=== PATIENT | male | born 1960 | race Hispanic/Latino ===

== ENCOUNTER 2018-06-04 15:57 | Inpatient (IN) | payer SELFPAY ==
--- NOTE | 2018-06-04 16:31 | Emergency Department Report ---
HPI - General Chief Complaint: Extremity Injury, Lower Time Seen by Provider: 06/04/18 16:23 - HPI HPI: 57-year-old male presents to the emergency department via EMS with complaint of left hip and groin pain has been going on since he had a fall on Monday. The patient does admit that he was intoxicated at that time and does not remember the event. He says that he has been laying in bed since that time. He was given 30 mg of Toradol by EMS without much relief. He says he is unable to ambulate or bear weight secondary to his hip/leg pain. He has a past medical history of coronary artery disease with a triple bypass. He denies hitting his head, any neck or back pain, headache, vision change or any other neurological deficits. ED Past Medical Hx - Past Medical History Hx Heart Attack/AMI: Yes Hx Congestive Heart Failure: No Hx Diabetes: No Hx Asthma: No Hx COPD: No - Social History Smoking Status: Current Every Day Smoker Substance Use Type: Alcohol - Medications Home Medications: Home Medications Medication Instructions Recorded Confirmed Last Taken Type Acetaminophen [Tylenol] 1,000 mg PO Q6HR 06/10/15 06/10/15 06/10/15 10:00 History ED Review of Systems ROS: Stated complaint: HIP PAIN Other details as noted in HPI Comment: All other systems reviewed and negative Constitutional: denies: chills, fever Eyes: denies: eye pain, vision change ENT: denies: ear pain, throat pain Respiratory: denies: cough, shortness of breath Cardiovascular: denies: chest pain, palpitations Gastrointestinal: denies: abdominal pain, vomiting Genitourinary: denies: dysuria, frequency Musculoskeletal: arthralgia. denies: back pain Skin: denies: rash, lesions Neurological: denies: headache, weakness Physical Exam - Physical Exam Vital Signs: Vital Signs 06/04/18 16:07 Temperature 98.1 F Pulse Rate 121 H Respiratory 18 Rate Blood Pressure 184/103 O2 Sat by Pulse 97 Oximetry Physical Exam: GENERAL: The patient is well-developed well-nourished. HEENT: Normocephalic. Atraumatic. Patient has moist mucous membranes. EYES: Extraocular motions are intact. NECK: Supple. Trachea is midline. CHEST/LUNGS: Clear to auscultation. There is no respiratory distress noted. HEART/CARDIOVASCULAR: Regular. There is mild to moderate tachycardia. There is no obvious murmur. ABDOMEN: There is no abdominal distention. SKIN: Skin is warm and dry. NEURO: The patient is awake, alert, and oriented. The patient is cooperative. The patient has no focal neurologic deficits. The patient has normal speech. MUSCULOSKELETAL: Tenderness to palpation to the left hip. Decreased range of motion of the left lower extremity secondary to pain. The left leg is slightly shortened and internally rotated.. ED Course Vital Signs 06/04/18 16:07 Temperature 98.1 F Pulse Rate 121 H Respiratory 18 Rate Blood Pressure 184/103 O2 Sat by Pulse 97 Oximetry - Consultations Consultation #1: 06/04/18 19:11 I spoke with the orthopedist on-call, Dr. Armijo, who is aware of the patient's femoral neck fracture and will see the patient has a consult. ED Medical Decision Making - Lab Data Result diagrams: 06/04/18 17:25 06/04/18 17:25 - Radiology Data Radiology results: image reviewed interpreted by me: X-ray of the left hip shows an impacted femoral neck fracture. - Medical Decision Making Patient had a fall 2 days ago when he was intoxicated and has been having hip pain and trouble bearing weight since that time. X-ray shows an impacted femoral neck fracture. He is neurovascularly intact. The orthopedist has been notified and consult. The patient has been accepted for admission by the hospitalist, Dr. Pina. - Differential Diagnosis blood pressure, contusion, sprain, strain Critical Care Time: No Critical care attestation.: If time is entered above; I have spent that time in minutes in the direct care of this critically ill patient, excluding procedure time. ED Disposition Clinical Impression: Fracture of femoral neck, left Qualifiers: Encounter type: initial encounter Fracture type: closed Qualified Code(s): S72.002A - Fracture of unspecified part of neck of left femur, initial encounter for closed fracture Hypertension Qualifiers: Hypertension type: essential hypertension Qualified Code(s): I10 - Essential (primary) hypertension Disposition: OP ADMIT IP TO THIS HOSP Is pt being admited?: Yes Condition: Fair Instructions: Hypertension (ED) Referrals: DAVID CHA MD [Primary Care Provider] - 3-5 Days Time of Disposition: 19:13
[2018-06-04] MEDS ORDERED: ZOFRAN ONE (17:13)
[2018-06-04] MEDS ORDERED: MORPHINE ONE (17:13)
[2018-06-04] MEDS ORDERED: ZOFRAN IV ONE (17:18)
[2018-06-04] MEDS ORDERED: MORPHINE IV ONE (17:18)
--- NOTE | 2018-06-04 17:21 | History and Physical Report ---
History of Present Illness Chief complaint: I fell and hurt my hip History of present illness: 57 YO Male with Nicotine Dependence, TX, CAD S/P CABG presents to ED for evaluation. Pt states that he got intoxicated over the weekend and subsequently experienced a fall. The patient states that he does not remember the event. Pt states that he is unable to bear weight on his left leg, and also states that he has been laying in bed since that time. EMS notified, and upon arrival the patient was found to be in distress and transported to [facility]. Pt seen and evaluated in ED and found to have Left Femoral neck fracture. Pt denies fever, chills, cp, palpitations, NVD, productive cough, brbpr, or recent ill contacts, vertigo, seizure. Pt denies ETOH dependence as well as frequent ETOH use, CAGE negative. Ortho consulted in ED. Past History Past Medical History: acute TX Past Surgical History: No surgical history, Other (reviewed) Social history: , lives with family, smoking. denies: alcohol abuse, prescription drug abuse Family history: no significant family history (reviewed) Medications and Allergies Allergies Allergy/AdvReac Type Severity Reaction Status Date / Time No Known Allergies Allergy Verified 06/10/15 15:55 Home Medications Medication Instructions Recorded Confirmed Last Taken Type Acetaminophen [Tylenol] 1,000 mg PO Q6HR PRN 06/10/15 06/05/18 06/04/18 12:00 History 1000MG Review of Systems Constitutional: no weight loss, no weight gain, no fever, no chills Ears, nose, mouth and throat: no ear pain, no ear discharge, no tinnitis Cardiovascular: no chest pain, no orthopnea, no syncope, no lightheadedness Respiratory: no cough, no cough with sputum, no excessive sputum, no shortness of breath Gastrointestinal: no nausea, no vomiting, no diarrhea Genitourinary Male: no hematuria, no flank pain, no discharge, no urinary frequency, no urinary hesitancy, no nocturia, no incontinence Rectal: no pain, no incontinence, no bleeding Musculoskeletal: other (Left leg pain. ), no neck stiffness, no neck pain, no redness of joints, no muscle weakness, no muscle cramps, no myalgias Integumentary: no rash, no pruritis, no redness, no wounds, no jaundice Neurological: no head injury, no transient paralysis, no paralysis, no weakness, no parathesias, no numbness, no seizures, no syncope Psychiatric: no anxiety, no memory loss, no change in sleep habits, no insomnia, no hypersomnia, no change in appetite, no change in libido, no suicidal ideation, no disorientation Endocrine: no cold intolerance, no heat intolerance, no polyphagia, no excessive thirst, no nocturia, no excessive sweating, no flushing Hematologic/Lymphatic: no easy bruising, no easy bleeding, no lymphadenopathy, no lymphedema Allergic/Immunologic: no urticaria, no persistent infections, no anaphylaxis Exam - Constitutional Vitals: Temp Pulse Resp BP Pulse Ox 98.1 F 121 H 18 184/103 97 06/04/18 16:07 06/04/18 16:07 06/04/18 16:07 06/04/18 16:07 06/04/18 16:07 General appearance: Present: mild distress - EENT Eyes: Present: PERRL ENT: hearing intact, clear oral mucosa - Neck Neck: Present: supple, normal ROM - Respiratory Respiratory effort: normal Respiratory: bilateral: CTA - Cardiovascular Heart Sounds: Present: S1 & S2. Absent: rub, click - Extremities Extremities: pulses symmetrical, No edema Extremity abnormal: other (left hip pain. ) Peripheral Pulses: within normal limits - Abdominal General gastrointestinal: Present: soft, non-tender, non-distended, normal bowel sounds Male genitourinary: Present: normal - Integumentary Integumentary: Present: clear, warm, dry - Musculoskeletal Musculoskeletal: gait normal, strength equal bilaterally - Psychiatric Psychiatric: appropriate mood/affect, intact judgment & insight - Neurologic Neurologic: CNII-XII intact, moves all extremities Results - Labs CBC & Chem 7: 06/04/18 17:25 06/04/18 17:25 Assessment and Plan - Patient Problems (1) Fracture of femoral neck, left Current Visit: Yes Status: Acute Qualifiers: Encounter type: initial encounter Fracture type: closed Qualified Code(s ): S72.002A - Fracture of unspecified part of neck of left femur, initial encounter for closed fracture Plan to address problem: Admit to surgical floor, Ortho consulted in ED, Hip x ray, IVF resuscitation, pain control, CBC, CMP, NPO after midnight. (2) Hypertension Current Visit: Yes Status: Acute Qualifiers: Hypertension type: essential hypertension Qualified Code(s): I10 - Essential (primary) hypertension Plan to address problem: Monitor bp q shift, continue medical management, (3) Nicotine dependence unspecified, with withdrawal Current Visit: Yes Status: Acute Qualifiers: Nicotine product type: cigarettes Qualified Code(s): F17.213 - Nicotine dependence, cigarettes, with withdrawal Plan to address problem: Smoking cessation counseling, supportive care. (4) DVT prophylaxis Current Visit: Yes Status: Acute Plan to address problem: SCD to BLE while in bed. prophylactic lovenox
--- NOTE | 2018-06-04 17:27 | XRay Report ---
PROCEDURE: XR HIP 2-3V LT TECHNIQUE: AP view of the pelvis and 2 coned-down views of the left hip. HISTORY: left hip pain COMPARISONS: None . FINDINGS: There is an acute impacted left femoral neck fracture. No evidence for dislocation is seen. Joint spaces are maintained. The soft tissues are unremarkable. Bony mineralization is normal. IMPRESSION: Acute impacted left femoral neck fracture This document is electronically signed by Ximena Hassan MD., June 04 2018 05:25:52 PM ET
[2018-06-04 18:06] LABS: Hematocrit 44.9 % (35.5-45.6); Hemoglobin 15.1 gm/dl (11.8-15.2); Mean Corpuscular HGB Conc 34 % (32-34); Mean Corpuscular Hemoglobin 29 pg (28-32); Mean Corpuscular Volume 87 fl (84-94); Platelet Count 216 K/mm3 (140-440); Red Blood Count 5.19 M/mm3 (3.65-5.03)
[2018-06-04 18:34] LABS: Alanine Aminotransferase 15 units/L (7-56); Albumin 3.7 g/dL (3.9-5); BUN/Creatinine Ratio 19; Blood Urea Nitrogen 17 mg/dL (9-20); Calcium 8.8 mg/dL (8.4-10.2); Hemolysis Index 12
[2018-06-04] MEDS ORDERED: ZOFRAN IV PRN (19:03)
[2018-06-04] MEDS ORDERED: PROVENTIL IH PRN (19:03)
[2018-06-04] MEDS ORDERED: SODIUM CHLORIDE FLUSH SYRINGE 10 ML IV PRN (19:03)
[2018-06-04] MEDS ORDERED: TYLENOL PO PRN (19:03)
[2018-06-04] MEDS: PERCOCET 5/325 PO PRN (19:23)
[2018-06-04] MEDS ORDERED: NACL 0.45% 500 ML IV SCH (20:00)
[2018-06-04] MEDS: SODIUM CHLORIDE FLUSH SYRINGE 10 ML IV SCH (22:49)
[2018-06-04] MEDS: NACL 0.45% 1000 ML 1,000 ML IV SCH (23:20)
[2018-06-05] MEDS: MORPHINE IV PRN ×3 (00:20→10:58)
[2018-06-05] MEDS: NACL 0.45% 1000 ML 1,000 ML IV SCH ×2 (09:10→23:11)
[2018-06-05] MEDS: SODIUM CHLORIDE FLUSH SYRINGE 10 ML IV SCH ×2 (09:11→21:48)
[2018-06-05] MEDS ORDERED: LOVENOX SUB-Q SCH (10:00)
--- NOTE | 2018-06-05 11:06 | Consultation ---
History of Present Illness Consult date: 06/05/18 Requesting physician: JOSE R BELLO Consult reason: pre op evaluation History of present illness: The pt is a 57 YO male with a past medical history of CAD s/p CABG x 3 (SAMSON - LAD, saphenous - posterior descending, saphenous - PLOM) in 05/2015 and tobacco use. He has not had any cardiology follow up since CABG due to insurance issues. He presented with hip pain after sustaining a fall at home. Per the chart, pt reported that he got intoxicated over the weekend and subsequently experienced a fall on Monday The patient states that he does not remember the event. Pt states that he is unable to bear weight on his left leg, and also states that he has been laying in bed since that time. Pt seen and evaluated in ED and found to have Left Femoral neck fracture. Pt denies any cardiac complaints. Echo done 05/2015 showed EF 45-54%, mild MR. Past History Past Medical History: CAD Social history: , lives with family, smoking. denies: alcohol abuse, prescription drug abuse Family history: no significant family history (reviewed) Medications and Allergies Allergies Allergy/AdvReac Type Severity Reaction Status Date / Time No Known Allergies Allergy Verified 06/10/15 15:55 Home Medications Medication Instructions Recorded Confirmed Last Taken Type Acetaminophen [Tylenol] 1,000 mg PO Q6HR PRN 06/10/15 06/05/18 06/04/18 12:00 History 1000MG Active Meds: Active Medications Acetaminophen (Tylenol) 650 mg PO Q4H PRN PRN Reason: Pain MILD(1-3)/Fever >100.5/AGUSTIN Albuterol (Proventil) 2.5 mg IH Q4HRT PRN PRN Reason: Shortness Of Breath Enoxaparin Sodium (Lovenox) 30 mg SUB-Q QDAY MARTIR Last Admin: 06/05/18 09:11 Dose: Not Given Documented by: Sodium Chloride (Nacl 0.45% 1000 Ml) 1,000 mls @ 100 mls/hr IV DIRECT MARTIR Last Admin: 06/05/18 09:10 Dose: 100 mls/hr Documented by: Morphine Sulfate (Morphine) 2 mg IV Q4H PRN PRN Reason: Pain, Moderate (4-6) Last Admin: 06/05/18 10:58 Dose: 2 mg Documented by: Ondansetron HCl (Zofran) 4 mg IV Q8H PRN PRN Reason: Nausea And Vomiting Oxycodone/Acetaminophen (Percocet 5/325) 1 tab PO Q6H PRN PRN Reason: Pain, Moderate (4-6) Last Admin: 06/04/18 19:23 Dose: 1 tab Documented by: Sodium Chloride (Sodium Chloride Flush Syringe 10 Ml) 10 ml IV BID MARTIR Last Admin: 06/05/18 09:11 Dose: 10 ml Documented by: Sodium Chloride (Sodium Chloride Flush Syringe 10 Ml) 10 ml IV PRN PRN PRN Reason: LINE FLUSH Review of Systems Constitutional: no weight loss, no weight gain, no fever, no chills, no sweats Ears, nose, mouth and throat: no ear pain, no nose pain, no sinus pressure, no sinus pain Cardiovascular: no chest pain, no orthopnea, no palpitations, no rapid/irregular heart beat, no edema, no syncope, no lightheadedness, no shortness of breath, no dyspnea on exertion Respiratory: no cough, no shortness of breath, no dyspnea on exertion, no congestion, no wheezing, no pain on inspiration Gastrointestinal: no abdominal pain, no nausea, no vomiting, no diarrhea, no c onstipation, no change in bowel habits Genitourinary Male: no dysuria, no hematuria, no flank pain, no discharge, no urinary frequency, no urinary hesitancy Musculoskeletal: no neck stiffness, no neck pain, no shooting arm pain, no arm numbness/tingling, no low back pain, no shooting leg pain Integumentary: no rash, no pruritis, no redness, no sores, no wounds Neurological: no head injury, no paralysis, no weakness, no parathesias, no numbness, no tingling, no seizures, no syncope Psychiatric: no anxiety Endocrine: no cold intolerance, no heat intolerance Hematologic/Lymphatic: no easy bruising, no easy bleeding Allergic/Immunologic: no urticaria, no wheezing Physical Examination Vital Signs Temp Pulse Resp BP Pulse Ox 98.1 F 121 H 18 184/103 97 06/04/18 16:07 06/04/18 16:07 06/04/18 16:07 06/04/18 16:07 06/04/18 16:07 General appearance: no acute distress HEENT: Positive: PERRL, Normocephaly, Mucus Membranes Moist Neck: Positive: neck supple, trachea midline Cardiac: Positive: Reg Rate and Rhythm, S1/S2 Lungs: Positive: Decreased Breath Sounds Neuro: Positive: Grossly Intact Abdomen: Positive: Soft. Negative: Tender Skin: Negative: Rash, Wound Musculoskeletal: No Pain Extremities: Absent: edema Results 06/04/18 17:25 06/04/18 17:25 Cardiac Enzymes 06/04/18 Range/Units 17:25 AST 21 (5-40) units/L CBC 06/04/18 Range/Units 17:25 WBC 11.3 H (4.5-11.0) K/mm3 RBC 5.19 H (3.65-5.03) M/mm3 Hgb 15.1 (11.8-15.2) gm/dl Hct 44.9 (35.5-45.6) % Plt Count 216 (140-440) K/mm3 Comprehensive Metabolic Panel 06/04/18 Range/Units 17:25 Sodium 138 (137-145) mmol/L Potassium 3.9 (3.6-5.0) mmol/L Chloride 100.5 (98-107) mmol/L Carbon Dioxide 26 (22-30) mmol/L BUN 17 (9-20) mg/dL Creatinine 0.9 (0.8-1.5) mg/dL Glucose 104 H (75-100) mg/dL Calcium 8.8 (8.4-10.2) mg/dL AST 21 (5-40) units/L ALT 15 (7-56) units/L Alkaline Phosphatase 89 (35-129) units/L Total Protein 6.9 (6.3-8.2) g/dL Albumin 3.7 L (3.9-5) g/dL - Imaging and Cardiology Echo: pending, report reviewed (05/2015 showed EF 45-54%, mild MR.) EKG: pending Assessment and Plan Currently stable cardiac status. Cardiology consulted for preoperative cardiac risk stratification for orthopedic surgery. Obtain echo and ECG and will provide risk stratification pending results. The patient has been seen in conjunction with Dr. Nilda Anton who agrees with the assessment and plan of care. - Patient Problems (1) Fracture of femoral neck, left Current Visit: Yes Status: Acute Qualifiers: Encounter type: initial encounter Fracture type: closed Qualified Code(s): S72.002A - Fracture of unspecified part of neck of left femur, initial encounter for closed fracture (2) CAD (coronary artery disease) Current Visit: Yes Status: Chronic (3) S/P CABG (coronary artery bypass graft) Current Visit: Yes Status: Chronic (4) Tobacco use Current Visit: Yes Status: Chronic
--- NOTE | 2018-06-05 14:21 | Consultation ---
History of Present Illness - [facility] Consult date: 06/05/18 Consult reason: fracture History of present illness: 57-year-old male with a history of alcoholism patient states that he was intoxicated prior to a fall which she cannot remember patient states afterwards he was unable to get up and place any weight onto his left lower extremity. She was brought to the emergency room where x-rays were taken revealing a displaced left femoral neck fracture there are no other complaints noted Past History Past Medical History: CAD Past Surgical History: No surgical history, Other (reviewed) Social history: , lives with family, smoking. denies: alcohol abuse, prescription drug abuse Family history: no significant family history (reviewed) Medications and Allergies Allergies Allergy/AdvReac Type Severity Reaction Status Date / Time No Known Allergies Allergy Verified 06/10/15 15:55 Home Medications Medication Instructions Recorded Confirmed Last Taken Type Acetaminophen [Tylenol] 1,000 mg PO Q6HR PRN 06/10/15 06/05/18 06/04/18 12:00 History 1000MG Active Meds: Active Medications Acetaminophen (Tylenol) 650 mg PO Q4H PRN PRN Reason: Pain MILD(1-3)/Fever >100.5/AGUSTIN Albuterol (Proventil) 2.5 mg IH Q4HRT PRN PRN Reason: Shortness Of Breath Aspirin (Baby Aspirin) 81 mg PO QDAY MARTIR Atorvastatin Calcium (Lipitor) 20 mg PO QHS MARTIR Enoxaparin Sodium (Lovenox) 30 mg SUB-Q Q12H [facility] Sodium Chloride (Nacl 0.45% 1000 Ml) 1,000 mls @ 100 mls/hr IV DIRECT MARTIR Last Admin: 06/05/18 09:10 Dose: 100 mls/hr Documented by: Metoprolol Tartrate (Lopressor) 25 mg PO BID [facility] Morphine Sulfate (Morphine) 2 mg IV Q4H PRN PRN Reason: Pain, Moderate (4-6) Last Admin: 06/05/18 10:58 Dose: 2 mg Documented by: Ondansetron HCl (Zofran) 4 mg IV Q8H PRN PRN Reason: Nausea And Vomiting Oxycodone/Acetaminophen (Percocet 5/325) 1 tab PO Q6H PRN PRN Reason: Pain, Moderate (4-6) Last Admin: 06/04/18 19:23 Dose: 1 tab Documented by: Sodium Chloride (Sodium Chloride Flush Syringe 10 Ml) 10 ml IV BID MARTIR Last Admin: 06/05/18 09:11 Dose: 10 ml Documented by: Sodium Chloride (Sodium Chloride Flush Syringe 10 Ml) 10 ml IV PRN PRN PRN Reason: LINE FLUSH Physical Examination - Physical exam Narrative exam: On physical examination significant musculoskeletal findings relates to the left lower extremity the patient has the left lower extremity and a flexed externally rotated position there is some shortening noted patient is tender about the groin there is decreased range of motion. Distal neurovascular status is intact Plain x-rays were reviewed by me and reveal a displaced femoral neck fracture on the left lower other bony abnormality was appreciated Eyes: PERRL ENT: Positive: clear oral mucosa Respiratory effort: normal Respiratory: bilateral: CTA Rhythm: regular Heart Sounds: Positive: S1 & S2 General gastrointestinal: Positive: soft, non-tender, non-distended, normal bowel sounds Integumentary: clear, warm, dry Neurologic: Positive: CNII-XII intact, moves all extremities, gait normal. Negative: focal deficits - Cervical Spine Neck pain: none Tenderness with palpation: none Full ROM: yes ROM: flexion: normal ROM: extension: normal ROM: rotation right: normal ROM: rotation left: normal ROM: lateral flexion right: normal ROM: lateral flexion left: normal - Lumbar Spine Back pain: none Tenderness with palpation: none Appearance: normal Full ROM: yes ROM: flexion: normal ROM: extension: normal ROM: rotation right: normal ROM: rotation left: normal ROM: lateral flexion right: normal ROM: lateral flexion left: normal Assessment and Plan Displaced left femoral neck fracture Recommendations - this is a history physical examination and review of the x-ray findings the patient is 57 years old and is fairly active therefore I have recommended a total hip replacement in this patient
[2018-06-05] MEDS ORDERED: MORPHINE IV PRN (14:58)
--- NOTE | 2018-06-05 16:50 | Progress Note ---
Assessment and Plan Assessment and plan: Patient's a 57-year-old male with a history of CAD status post CABG 3 vessels present into the hospital following a fall mechanism of fall is unknown patient describes it as a "freak accident" although he endorses history of alcohol use he reports that he drinks very infrequent maybe 12 pack every other week. Left hip x-ray: IMPRESSION: Acute impacted left femoral neck fracture - Patient Problems (1) Fracture of femoral neck, left Current Visit: Yes Status: Acute Qualifiers: Encounter type: initial encounter Fracture type: closed Qualified Code(s): S72.002A - Fracture of unspecified part of neck of left femur, initial encounter for closed fracture Plan to address problem: Pain control. We'll also proceed with a full consult as this was not done in the ED. DVT and GI prophylaxis We'll give cardiac diet and keep nothing by mouth after midnight (2) CAD at this post CABG Will obtain cardiac clearance for preop considering history of CABG. Patient unfortunately has not been taking any medication for this. (3) Hypertension Current Visit: Yes Status: Acute Qualifiers: Hypertension type: essential hypertension Qualified Code(s): I10 - Essential (primary) hypertension Plan to address problem: Monitor bp q shift, continue medical management, (4) Nicotine dependence unspecified, with withdrawal Current Visit: Yes Status: Acute Qualifiers: Nicotine product type: cigarettes Qualified Code(s): F17.213 - Nicotine dependence, cigarettes, with withdrawal Plan to address problem: Smoking cessation counseling, supportive care. (4) EtOH use disorder Patient does not demonstrate any evidence of withdrawal at this time. Extensive counseling provided to the patient about alcohol abuse and use patient verbalized understanding we'll monitor for any development of withdrawal symptoms. (5)DVT prophylaxis Current Visit: Yes Status: Acute Plan to address problem: SCD to BLE while in bed. prophylactic lovenox History Interval history: Patient seen and examined, reports hip pain, denies any hx of intoxication when he fell as recorded, but stated that it was a "freak accident" and could not elaborate. He also mentions that he's had multiple falls in his life but could not elaborate. He also feels he has a history of CABG but does not follow up. take any medications. He reports that his alcohol use is infrequent, the later which is confirmed by the son. Hospitalist Physical - Physical exam Narrative exam: VITAL SIGNS: Reviewed. GENERAL: The patient appeared well nourished and normally developed, Vital signs as documented. HEAD: No signs of head trauma. EYES: Pupils are equal. Extraocular motions intact. EARS: Hearing grossly intact. MOUTH: Oropharynx is normal. NECK: No adenopathy, no JVD. CHEST: Chest with clear breath sounds bilaterally. No wheezes, rales, or rhonchi. CARDIAC: Regular rate and rhythm. S1 and S2, without murmurs, gallops, or rubs. VASCULAR: No Edema. Peripheral pulses normal and equal in all extremities. ABDOMEN: Soft, non tender and non distended. No rebound or guarding, and no masses palpated. Bowel Sounds normal. MUSCULOSKELETAL: Good range of motion of all major joints except left hip with significant pain on palpation range of motion not assessed. Extremities without clubbing, cyanosis or edema. NEUROLOGIC EXAM: Alert and oriented x 3 No focal sensory or strength deficits. Speech normal. Follows commands. PSYCHIATRIC: Mood normal. SKIN: Well-healed surgical scar in the mid chest - Constitutional Vitals: Temp Pulse Resp BP Pulse Ox 98.0 F 76 20 150/85 94 06/05/18 11:59 06/05/18 11:59 06/05/18 11:59 06/05/18 11:59 06/05/18 11:59 General appearance: Present: no acute distress Results - Labs CBC & Chem 7: 06/04/18 17:25 06/04/18 17:25 Labs: Laboratory Last Values WBC 11.3 K/mm3 (4.5-11.0) H 06/04/18 17:25 RBC 5.19 M/mm3 (3.65-5.03) H 06/04/18 17:25 Hgb 15.1 gm/dl (11.8-15.2) 06/04/18 17:25 Hct 44.9 % (35.5-45.6) 06/04/18 17:25 MCV 87 fl (84-94) 06/04/18 17:25 MCH 29 pg (28-32) 06/04/18 17:25 MCHC 34 % (32-34) 06/04/18 17:25 RDW 14.0 % (13.2-15.2) 06/04/18 17:25 Plt Count 216 K/mm3 (140-440) 06/04/18 17:25 Sodium 138 mmol/L (137-145) 06/04/18 17:25 Potassium 3.9 mmol/L (3.6-5.0) 06/04/18 17:25 Chloride 100.5 mmol/L (98-107) 06/04/18 17:25 Carbon Dioxide 26 mmol/L (22-30) 06/04/18 17:25 Anion Gap 15 mmol/L 06/04/18 17:25 BUN 17 mg/dL (9-20) 06/04/18 17:25 Creatinine 0.9 mg/dL (0.8-1.5) 06/04/18 17:25 Estimated GFR > 60 ml/min 06/04/18 17:25 BUN/Creatinine Ratio 19 % 06/04/18 17:25 Glucose 104 mg/dL (75-100) H 06/04/18 17:25 Calcium 8.8 mg/dL (8.4-10.2) 06/04/18 17:25 Total Bilirubin 0.60 mg/dL (0.1-1.2) 06/04/18 17:25 AST 21 units/L (5-40) 06/04/18 17:25 ALT 15 units/L (7-56) 06/04/18 17:25 Alkaline Phosphatase 89 units/L (35-129) 06/04/18 17:25 Total Protein 6.9 g/dL (6.3-8.2) 06/04/18 17:25 Albumin 3.7 g/dL (3.9-5) L 06/04/18 17:25 Albumin/Globulin Ratio 1.2 % 06/04/18 17:25 Plasma/Serum Alcohol < 0.01 % (0-0.07) 06/04/18 17:25 Active Medications - Current Medications Current Medications: Generic Name Dose Route Start Last Admin Trade Name Freq PRN Reason Stop Dose Admin Acetaminophen 650 mg 06/04/18 19:03 Tylenol PO Q4H PRN Pain MILD(1-3)/Fever >100.5/AGUSTIN Albuterol 2.5 mg 06/04/18 19:03 Proventil IH Q4HRT PRN Shortness Of Breath Aspirin 81 mg 06/06/18 10:00 Baby Aspirin PO QDAY MARTIR Atorvastatin Calcium 20 mg 06/05/18 22:00 Lipitor PO QHS MARTIR Enoxaparin Sodium 30 mg 06/06/18 10:00 Lovenox SUB-Q Q12H MARTIR Hydromorphone HCl 1 mg 06/05/18 16:47 Dilaudid IV Q4H PRN Pain , Severe (7-10) Sodium Chloride 1,000 mls @ 100 mls/hr 06/04/18 23:00 06/05/18 09:10 Nacl 0.45% 1000 Ml IV 100 mls/hr DIRECT MARTIR Administration Metoprolol Tartrate 25 mg 06/05/18 22:00 Lopressor PO BID MARTIR Ondansetron HCl 4 mg 06/04/18 19:03 Zofran IV Q8H PRN Nausea And Vomiting Oxycodone/Acetaminophen 1 tab 06/04/18 19:03 06/04/18 19:23 Percocet 5/325 PO 1 tab Q6H PRN Administration Pain, Moderate (4-6) Sodium Chloride 10 ml 06/04/18 22:00 06/05/18 09:11 Sodium Chloride Flush Syringe 10 Ml IV 10 ml BID MARTIR Administration Sodium Chloride 10 ml 06/04/18 19:03 Sodium Chloride Flush Syringe 10 Ml IV PRN PRN LINE FLUSH
[2018-06-05] MEDS ORDERED: SENOKOT S PO PRN (16:55)
--- NOTE | 2018-06-05 17:01 | Anesthesia Consultation ---
Anesthesia Consult and Med Hx Date of service: 06/06/18 - Airway Anesthetic Teeth Evaluation: Dentures ROM Head & Neck: Adequate Mental/Hyoid Distance: Adequate Mallampati Class: Class II Intubation Access Assessment: Probably Good - Pulmonary Exam CTA: Yes - Cardiac Exam Cardiac Exam: RRR - Pre-Operative Health Status ASA Pre-Surgery Classification: ASA3 Proposed Anesthetic Plan: General - Pulmonary Hx Smoking: Yes (1 ppd >30 years) Hx Asthma: No Hx Respiratory Symptoms: No COPD: No Hx Pneumonia: No Hx Sleep Apnea: No - Cardiovascular System Hx Hypertension: No Hx Coronary Artery Disease: Yes 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) Hx Angina: Yes Hx Cardia Arrhythmia: No Hx Pacemaker: No Hx Peripheral Vascular Disease: No - Central Nervous System Hx Neuromuscular Disorder: No Hx Psychiatric Problems: No - Gastrointestinal Hx Gastroesophageal Reflux Disease: No - Endocrine Hx Renal Disease: No Hx End Stage Renal Disease: No Hx Liver Disease: No Hx Insulin Dependent Diabetes: No Hx Non-Insulin Dependent Diabetes: No Hx Thyroid Disease: No - Hematic Hx Anemia: No - Other Systems Hx Alcohol Use: Yes Hx Substance Use: No Hx Cancer: No Hx Obesity: Yes - Additional Comments Anesthesia Medical History Comments: No GAC, No FHAC
[2018-06-05] MEDS: DILAUDID IV PRN (21:48)
[2018-06-05] MEDS: LOPRESSOR PO SCH (21:48)
[2018-06-06] MEDS: DILAUDID IV PRN ×5 (03:46→21:50)
[2018-06-06 06:11] LABS: Chol/HDL Ratio 4.54 %
[2018-06-06] MEDS: BABY ASPIRIN PO SCH (09:09)
[2018-06-06] MEDS: LOVENOX SUB-Q SCH ×2 (09:09→21:42)
[2018-06-06] MEDS: SODIUM CHLORIDE FLUSH SYRINGE 10 ML IV SCH ×2 (09:15→21:46)
[2018-06-06] MEDS: LOPRESSOR PO SCH ×2 (10:29→21:43)
--- NOTE | 2018-06-06 11:17 | Progress Note ---
Assessment and Plan TTE and ECG reviewed. Currently stable cardiac status. Pt is at moderate cardiovascular risk for contemplated ortho surgery. There are no immediate cardiac contraindications to proceeding with surgery at this time. The patient has been seen in conjunction with Dr. Nilda Anton who agrees with the assessment and plan of care. - Patient Problems (1) Fracture of femoral neck, left Current Visit: Yes Status: Acute Qualifiers: Encounter type: initial encounter Fracture type: closed Qualified Code(s): S72.002A - Fracture of unspecified part of neck of left femur, initial encounter for closed fracture (2) CAD (coronary artery disease) Current Visit: Yes Status: Chronic (3) S/P CABG (coronary artery bypass graft) Current Visit: Yes Status: Chronic (4) Tobacco use Current Visit: Yes Status: Chronic Subjective Date of service: 06/06/18 Principal diagnosis: hip fx Interval history: pt resting in bed, no current cardiac complaints. states he is going to surgery today at 2PM. Objective Last Vital Signs Temp 98.2 F 06/06/18 04:55 Pulse 76 06/06/18 04:55 Resp 24 06/06/18 04:55 BP 164/80 06/06/18 10:29 Pulse Ox 94 06/06/18 04:55 - Physical Examination General: No Apparent Distress HEENT: Positive: PERRL, Normocephaly, Mucus Membranes Moist Neck: Positive: neck supple, trachea midline Cardiac: Positive: Reg Rate and Rhythm, S1/S2 Lungs: Positive: Decreased Breath Sounds Neuro: Positive: Grossly Intact Abdomen: Positive: Soft. Negative: Tender Skin: Negative: Rash, Wound Musculoskeletal: No Pain Extremities: Absent: edema - Labs and Meds Lipids 06/06/18 Range/Units 04:09 Triglycerides 103 (2-149) mg/dL Cholesterol 141 (50-199) mg/dL HDL Cholesterol 31 L (40-59) mg/dL Cholesterol/HDL Ratio 4.54 % - Imaging and Cardiology EKG: report reviewed, image reviewed Echo: pending, report reviewed (05/2015 showed EF 45-54%, mild MR.) - Telemetry EKG Rhythm: Sinus Rhythm
--- NOTE | 2018-06-06 14:11 | Progress Note ---
Assessment and Plan Assessment and plan: Patient's a 57-year-old male with a history of CAD status post CABG 3 vessels present into the hospital following a fall mechanism of fall is unknown patient describes it as a "freak accident" although he endorses history of alcohol use he reports that he drinks very infrequent maybe 12 pack every other week. Left hip x-ray: IMPRESSION: Acute impacted left femoral neck fracture Assessment Fracture of the left femoral neck CAD status post CABG Hypertension EtOH use disorder Nicotine dependence Plan Continue pain control and supportive care Patient plan for surgery today Cardiology input noted patient was considered a moderate risk for cardiovascular risk assessment for planned for surgery. Since there are no immediate cardiac contraindication Extensive counseling provided to the patient will need to quit tobacco use DVT and GI prophylaxis Plan discussed with the patient and family History Interval history: Patient seen and examined, denies any new complaints. Plan for surgery today Hospitalist Physical - Physical exam Narrative exam: VITAL SIGNS: Reviewed. GENERAL: The patient appeared well nourished and normally developed, Vital signs as documented. HEAD: No signs of head trauma. EYES: Pupils are equal. Extraocular motions intact. EARS: Hearing grossly intact. MOUTH: Oropharynx is normal. NECK: No adenopathy, no JVD. CHEST: Chest with clear breath sounds bilaterally. No wheezes, rales, or rhonchi. CARDIAC: Regular rate and rhythm. S1 and S2, without murmurs, gallops, or rubs. VASCULAR: No Edema. Peripheral pulses normal and equal in all extremities. ABDOMEN: Soft, non tender and non distended. No rebound or guarding, and no masses palpated. Bowel Sounds normal. MUSCULOSKELETAL: Good range of motion of all major joints except left hip with significant pain on palpation range of motion not assessed. Extremities without clubbing, cyanosis or edema. NEUROLOGIC EXAM: Alert and oriented x 3 No focal sensory or strength deficits. Speech normal. Follows commands. PSYCHIATRIC: Mood normal. SKIN: Well-healed surgical scar in the mid chest - Constitutional Vitals: Temp Pulse Resp BP Pulse Ox 98.3 F 69 20 160/75 95 06/06/18 11:21 06/06/18 11:21 06/06/18 11:21 06/06/18 11:21 06/06/18 13:24 General appearance: Present: no acute distress Results - Labs CBC & Chem 7: 06/04/18 17:25 06/04/18 17:25 Labs: Laboratory Last Values WBC 11.3 K/mm3 (4.5-11.0) H 06/04/18 17:25 RBC 5.19 M/mm3 (3.65-5.03) H 06/04/18 17:25 Hgb 15.1 gm/dl (11.8-15.2) 06/04/18 17:25 Hct 44.9 % (35.5-45.6) 06/04/18 17:25 MCV 87 fl (84-94) 06/04/18 17:25 MCH 29 pg (28-32) 06/04/18 17:25 MCHC 34 % (32-34) 06/04/18 17:25 RDW 14.0 % (13.2-15.2) 06/04/18 17:25 Plt Count 216 K/mm3 (140-440) 06/04/18 17:25 Sodium 138 mmol/L (137-145) 06/04/18 17:25 Potassium 3.9 mmol/L (3.6-5.0) 06/04/18 17:25 Chloride 100.5 mmol/L (98-107) 06/04/18 17:25 Carbon Dioxide 26 mmol/L (22-30) 06/04/18 17:25 Anion Gap 15 mmol/L 06/04/18 17:25 BUN 17 mg/dL (9-20) 06/04/18 17:25 Creatinine 0.9 mg/dL (0.8-1.5) 06/04/18 17:25 Estimated GFR > 60 ml/min 06/04/18 17:25 BUN/Creatinine Ratio 19 % 06/04/18 17:25 Glucose 104 mg/dL (75-100) H 06/04/18 17:25 Calcium 8.8 mg/dL (8.4-10.2) 06/04/18 17:25 Total Bilirubin 0.60 mg/dL (0.1-1.2) 06/04/18 17:25 AST 21 units/L (5-40) 06/04/18 17:25 ALT 15 units/L (7-56) 06/04/18 17:25 Alkaline Phosphatase 89 units/L (35-129) 06/04/18 17:25 Total Protein 6.9 g/dL (6.3-8.2) 06/04/18 17:25 Albumin 3.7 g/dL (3.9-5) L 06/04/18 17:25 Albumin/Globulin Ratio 1.2 % 06/04/18 17:25 Triglycerides 103 mg/dL (2-149) 06/06/18 04:09 Cholesterol 141 mg/dL (50-199) 06/06/18 04:09 LDL Cholesterol Direct 103 mg/dL (50-130) 06/06/18 04:09 HDL Cholesterol 31 mg/dL (40-59) L 06/06/18 04:09 Cholesterol/HDL Ratio 4.54 % 06/06/18 04:09 Plasma/Serum Alcohol < 0.01 % (0-0.07) 06/04/18 17:25 Active Medications - Current Medications Current Medications: Generic Name Dose Route Start Last Admin Trade Name Freq PRN Reason Stop Dose Admin Acetaminophen 650 mg 06/04/18 19:03 Tylenol PO Q4H PRN Pain MILD(1-3)/Fever >100.5/AGUSTIN Albuterol 2.5 mg 06/04/18 19:03 Proventil IH Q4HRT PRN Shortness Of Breath Aspirin 81 mg 06/06/18 10:00 06/06/18 09:09 Baby Aspirin PO Not Given QDAY MARTIR Atorvastatin Calcium 20 mg 06/05/18 22:00 06/05/18 21:48 Lipitor PO 20 mg QHS MARTIR Administration Enoxaparin Sodium 30 mg 06/06/18 10:00 06/06/18 09:09 Lovenox SUB-Q Not Given Q12H MARTIR Hydromorphone HCl 1 mg 06/05/18 16:47 06/06/18 09:10 Dilaudid IV 1 mg Q4H PRN Administration Pain , Severe (7-10) Sodium Chloride 1,000 mls @ 100 mls/hr 06/04/18 23:00 06/05/18 23:11 Nacl 0.45% 1000 Ml IV 100 mls/hr DIRECT MARTIR Administration Metoprolol Tartrate 25 mg 06/05/18 22:00 06/06/18 10:29 Lopressor PO 25 mg BID MARTIR Administration Ondansetron HCl 4 mg 06/04/18 19:03 Zofran IV Q8H PRN Nausea And Vomiting Oxycodone/Acetaminophen 1 tab 06/04/18 19:03 06/04/18 19:23 Percocet 5/325 PO 1 tab Q6H PRN Administration Pain, Moderate (4-6) Senna/Docusate Sodium 2 tab 06/05/18 16:55 Senokot S PO Q12H PRN Laxative Effect Sodium Chloride 10 ml 06/04/18 22:00 06/06/18 09:15 Sodium Chloride Flush Syringe 10 Ml IV 10 ml BID MARTIR Administration Sodium Chloride 10 ml 06/04/18 19:03 Sodium Chloride Flush Syringe 10 Ml IV PRN PRN LINE FLUSH
[2018-06-06] MEDS: NACL 0.45% 1000 ML 1,000 ML IV SCH (19:03)
[2018-06-07] MEDS: DILAUDID IV PRN ×2 (04:52→22:49)
[2018-06-07] MEDS: NACL 0.45% 1000 ML 1,000 ML IV SCH (07:26)
[2018-06-07] MEDS ORDERED: SUBLIMAZE ONE ×2 (07:33→10:01)
[2018-06-07] MEDS ORDERED: DIPRIVAN 10 MG/ML IV ONE (07:33)
[2018-06-07] MEDS ORDERED: TORADOL ONE (07:37)
[2018-06-07] MEDS ORDERED: NACL 0.9% 100 ML ONE (07:38)
[2018-06-07] MEDS ORDERED: MARCAINE 0.5% INFILTRATI ONE ×3 (07:38→12:30)
[2018-06-07] MEDS ORDERED: TRANEXAMIC ACID ONE (07:38)
[2018-06-07] MEDS ORDERED: MORPHINE ONE (07:38)
[2018-06-07] MEDS ORDERED: KETALAR ONE (07:39)
[2018-06-07] MEDS ORDERED: PROAIR IH ONE (07:39)
[2018-06-07] MEDS ORDERED: Vasostrict ONE (07:40)
[2018-06-07] MEDS: LACTATED RINGERS 1,000 ML IV SCH ×2 (08:12→18:33)
--- NOTE | 2018-06-07 08:29 | Anesthesia Day of Surgery ---
Anesthesia Day of Surgery - Day of Surgery Patient Examined: Yes Patient H&P Reviewed: Yes Patient is NPO: Yes
[2018-06-07] MEDS ORDERED: DILAUDID IV PRN (08:30)
[2018-06-07] MEDS ORDERED: VERSED IV NR (09:00)
[2018-06-07] MEDS ORDERED: ANCEF/STERILE WATER 2 GM/20 ML IV NR (09:00)
[2018-06-07] MEDS ORDERED: NEURONTIN PO NR (09:00)
[2018-06-07] MEDS ORDERED: XYLOCAINE MPF 2% ONE (09:49)
[2018-06-07] MEDS ORDERED: ROBINUL ONE (09:49)
[2018-06-07] MEDS ORDERED: NEO SYNEPHRINE/NS Syringe(OR USE) IV ONE (09:49)
[2018-06-07] MEDS ORDERED: VERSED ONE ×2 (09:55→10:08)
[2018-06-07] MEDS: LOPRESSOR PO SCH ×2 (10:00→22:44)
[2018-06-07] MEDS: LOVENOX SUB-Q SCH (10:00)
[2018-06-07] MEDS: ZESTRIL PO SCH (10:00)
[2018-06-07] MEDS: BABY ASPIRIN PO SCH (10:00)
[2018-06-07] MEDS ORDERED: ACD-A 500 ML IV ONE (10:56)
[2018-06-07] MEDS ORDERED: NACL 0.9% IR ONE (11:02)
[2018-06-07] MEDS ORDERED: NACL 0.9% 150 ML ONE (11:25)
[2018-06-07] MEDS ORDERED: MORPHINE IM ONE ×2 (12:30)
[2018-06-07] MEDS ORDERED: TORADOL IV ONE ×2 (12:30)
[2018-06-07] MEDS ORDERED: NACL 0.9% IV ONE ×2 (12:30)
--- NOTE | 2018-06-07 12:37 | Procedure Note ---
Date of procedure: 06/07/18 Pre-op diagnosis: Displaced left femoral neck fracture Post-op diagnosis: same Procedure: Left total hip replacement Procedure The patient was brought to the OR on the hospital bed C was given general anesthesia and intubated the patient was then transferred onto the OR table and placed in the right lateral decubitus position care was taken to pad bony areas and the axillary rolls placed under the right arm. Next the hip and thigh were prepped and draped in the usual sterile manner. A timeout procedure was done to identify the patient and the correct operative site. A lateral incision was made over the proximal femur this was carried down through skin and subcutaneous the fascia ly was seen and incised longitudinally E Gertrudis retractor was placed in the wound following this the vastus lateralis and portions of the gluteus medius muscles were released from the proximal femur the incision was then carried anteriorly into the hip capsule with the knee flexed and externally rotated the capsulotomy was carried out with the fracture was then seen at the femoral neck using a small broach as a guide and osteotomy was performed on the remaining portion of the femoral neck following this a corkscrew was used to remove the femoral head measuring the size of the head a 55 mm head diameter was was obtained with the retractors placed around the rim of the acetabulum the reaming was begun starting with a 53 mm reamer and progressing upwards to a 59 Was taken to maintain the correct version following this the wound was irrigated and a 60 mm hemispherical acetabular cup was inserted to bone screws were used to secure the acetabular cup and the socket next the polyethylene liner was inserted following this attention was turned to the proximal femur using a Voya.ge cutter rasp the medullary canal was entered this was then subsequently broached to a #5 stem, again care was taken to maintain the correct version and the femoral stem following this a trial reduction was performed using a standard neck length with a neutral 40 mm head.. The hip was reduced and taken through a range of motion and was found to be stable next the trial stems were removed and again the proximal femur was irrigated using pulse lavage the final stem was inserted along with a neutral head and neck length. Again the hip was reduced and taken through range of motion and was found to be stable measuring the leg lengths and appeared to be equal to that of the left. The hip was then closed in a standard routine fashion beginning with the capsule low tissue vastus lateralis and gluteus medius fascia ly and finally the deep and superficial subcutaneous and skin. Pressure dressings were applied the patient tolerated the procedure. There were no complications Anesthesia: ELIO Surgeon: SHIRLEY PETIT Building Surveyor: TAMEKA GONZALEZ Estimated blood loss: other (300ml) Pathology: list (left femoral head) Specimen disposition: to lab Condition: stable Disposition: PACU
[2018-06-07] MEDS ORDERED: MARCAINE 0.25% INFILTRATI ONE (12:56)
[2018-06-07] MEDS ORDERED: DECADRON ONE (12:57)
[2018-06-07] MEDS ORDERED: SODIUM CHLORIDE FLUSH SYRINGE 10 ML IV NR (13:00)
[2018-06-07] MEDS: PERCOCET 5/325 PO PRN (13:40)
--- NOTE | 2018-06-07 14:56 | Post Anesthesia Evaluation ---
- Post Anesthesia Evaluation Patient Participated: Yes Airway Patent: Yes Stable Respiratory Function: Yes Nausea/Vomiting: No Temp > 96.8F: Yes Pain Manageable: Yes Adequeate Hydration: Yes Anesthesia Complications: No
--- NOTE | 2018-06-07 16:26 | Progress Note ---
Assessment and Plan Assessment and plan: Patient's a 57-year-old male with a history of CAD status post CABG 3 vessels present into the hospital following a fall mechanism of fall is unknown patient describes it as a "freak accident" although he endorses history of alcohol use he reports that he drinks very infrequent maybe 12 pack every other week. Left hip x-ray: IMPRESSION: Acute impacted left femoral neck fracture Assessment Fracture of the left femoral neck CAD status post CABG Hypertension EtOH use disorder Nicotine dependence Plan Continue pain control and supportive care s/p left total hip replacement started on on atorvastatin, metoprolol, SWEETIE inhibitor. Can be discharged on these. PT OT evaluation and treatment Cardiology input noted patient was considered a moderate risk for cardiovascular risk assessment for planned for surgery. Since there are no immediate cardiac contraindication Extensive counseling provided to the patient will need to quit tobacco use DVT and GI prophylaxis Plan discussed with the patient and family Disposition per orthopedic surgeon and physical therapy. History Interval history: Patient seen and examined, denies any new complaints doing well post op. Hospitalist Physical - Physical exam Narrative exam: VITAL SIGNS: Reviewed. GENERAL: The patient appeared well nourished and normally developed, Vital signs as documented. HEAD: No signs of head trauma. EYES: Pupils are equal. Extraocular motions intact. EARS: Hearing grossly intact. MOUTH: Oropharynx is normal. NECK: No adenopathy, no JVD. CHEST: Chest with clear breath sounds bilaterally. No wheezes, rales, or rhonchi. CARDIAC: Regular rate and rhythm. S1 and S2, without murmurs, gallops, or rubs. VASCULAR: No Edema. Peripheral pulses normal and equal in all extremities. ABDOMEN: Soft, non tender and non distended. No rebound or guarding, and no masses palpated. Bowel Sounds normal. MUSCULOSKELETAL: Dressing over surgical site at left femoral neck. NEUROLOGIC EXAM: Alert and oriented x 3 No focal sensory or strength deficits. Speech normal. Follows commands. PSYCHIATRIC: Mood normal. SKIN: Well-healed surgical scar in the mid chest - Constitutional Vitals: Temp Pulse Resp BP Pulse Ox 98.8 F 70 14 138/68 96 06/07/18 13:45 06/07/18 13:45 06/07/18 13:45 06/07/18 13:45 06/07/18 13:45 General appearance: Present: no acute distress Results - Labs CBC & Chem 7: 06/04/18 17:25 06/04/18 17:25 Labs: Laboratory Last Values WBC 11.3 K/mm3 (4.5-11.0) H 06/04/18 17:25 RBC 5.19 M/mm3 (3.65-5.03) H 06/04/18 17:25 Hgb 15.1 gm/dl (11.8-15.2) 06/04/18 17:25 Hct 44.9 % (35.5-45.6) 06/04/18 17:25 MCV 87 fl (84-94) 06/04/18 17:25 MCH 29 pg (28-32) 06/04/18 17:25 MCHC 34 % (32-34) 06/04/18 17:25 RDW 14.0 % (13.2-15.2) 06/04/18 17:25 Plt Count 216 K/mm3 (140-440) 06/04/18 17:25 Sodium 138 mmol/L (137-145) 06/04/18 17:25 Potassium 3.9 mmol/L (3.6-5.0) 06/04/18 17:25 Chloride 100.5 mmol/L (98-107) 06/04/18 17:25 Carbon Dioxide 26 mmol/L (22-30) 06/04/18 17:25 Anion Gap 15 mmol/L 06/04/18 17:25 BUN 17 mg/dL (9-20) 06/04/18 17:25 Creatinine 0.9 mg/dL (0.8-1.5) 06/04/18 17:25 Estimated GFR > 60 ml/min 06/04/18 17:25 BUN/Creatinine Ratio 19 % 06/04/18 17:25 Glucose 104 mg/dL (75-100) H 06/04/18 17:25 Calcium 8.8 mg/dL (8.4-10.2) 06/04/18 17:25 Total Bilirubin 0.60 mg/dL (0.1-1.2) 06/04/18 17:25 AST 21 units/L (5-40) 06/04/18 17:25 ALT 15 units/L (7-56) 06/04/18 17:25 Alkaline Phosphatase 89 units/L (35-129) 06/04/18 17:25 Total Protein 6.9 g/dL (6.3-8.2) 06/04/18 17:25 Albumin 3.7 g/dL (3.9-5) L 06/04/18 17:25 Albumin/Globulin Ratio 1.2 % 06/04/18 17:25 Triglycerides 103 mg/dL (2-149) 06/06/18 04:09 Cholesterol 141 mg/dL (50-199) 06/06/18 04:09 LDL Cholesterol Direct 103 mg/dL (50-130) 06/06/18 04:09 HDL Cholesterol 31 mg/dL (40-59) L 06/06/18 04:09 Cholesterol/HDL Ratio 4.54 % 06/06/18 04:09 Plasma/Serum Alcohol < 0.01 % (0-0.07) 06/04/18 17:25 Active Medications - Current Medications Current Medications: Generic Name Dose Route Start Last Admin Trade Name Freq PRN Reason Stop Dose Admin Acetaminophen 650 mg 06/04/18 19:03 Tylenol PO Q4H PRN Pain MILD(1-3)/Fever >100.5/AGUSTIN Albuterol 2.5 mg 06/04/18 19:03 Proventil IH Q4HRT PRN Shortness Of Breath Aspirin 81 mg 06/06/18 10:00 06/06/18 09:09 Baby Aspirin PO Not Given QDAY [facility] Atorvastatin Calcium 20 mg 06/05/18 22:00 06/06/18 21:42 Lipitor PO 20 mg QHS MARTIR Administration Enoxaparin Sodium 30 mg 06/06/18 10:00 06/06/18 21:42 Lovenox SUB-Q 30 mg Q12H MARTIR Administration Enoxaparin Sodium 40 mg 06/08/18 10:00 Lovenox SUB-Q QDAY MARTIR Hydromorphone HCl 1 mg 06/05/18 16:47 06/07/18 04:52 Dilaudid IV 1 mg Q4H PRN Administration Pain , Severe (7-10) Hydromorphone HCl 0.5 mg 06/07/18 08:30 06/07/18 13:14 Dilaudid IV 06/07/18 20:00 0.5 mg Q10MIN PRN Administration Pain , Severe (7-10) Sodium Chloride 1,000 mls @ 100 mls/hr 06/04/18 23:00 06/07/18 07:26 Nacl 0.45% 1000 Ml IV 100 mls/hr DIRECT MARTIR Administration Lactated Ringer's 1,000 mls @ 75 mls/hr 06/07/18 09:00 06/07/18 08:12 Lactated Ringers IV 75 mls/hr DIRECT MARTIR Administration Cefazolin Sodium 1 gm in 50 mls @ 100 mls/hr 06/07/18 19:00 Ancef/Ns 1 Gm/50 Ml IV 06/08/18 03:29 Q8H MARTIR Lisinopril 20 mg 06/07/18 10:00 Zestril PO QDAY MARTIR Metoprolol Tartrate 25 mg 06/05/18 22:00 06/06/18 21:43 Lopressor PO 25 mg BID MARTIR Administration Midazolam HCl 2 mg 06/07/18 09:00 Versed IV 06/07/18 23:59 PREOP NR Morphine Sulfate 4 mg 06/07/18 12:31 Morphine IV Q4H PRN Pain , Severe (7-10) Ondansetron HCl 4 mg 06/04/18 19:03 Zofran IV Q8H PRN Nausea And Vomiting Oxycodone/Acetaminophen 1 tab 06/04/18 19:03 06/04/18 19:23 Percocet 5/325 PO 1 tab Q6H PRN Administration Pain, Moderate (4-6) Oxycodone/Acetaminophen 1 tab 06/07/18 12:31 06/07/18 13:40 Percocet 5/325 PO 1 tab Q6H PRN Administration Pain, Moderate (4-6) Senna/Docusate Sodium 2 tab 06/05/18 16:55 Senokot S PO Q12H PRN Laxative Effect Sodium Chloride 10 ml 06/04/18 22:00 06/06/18 21:46 Sodium Chloride Flush Syringe 10 Ml IV 10 ml BID MARTIR Administration Sodium Chloride 10 ml 06/04/18 19:03 Sodium Chloride Flush Syringe 10 Ml IV PRN PRN LINE FLUSH Sodium Chloride 10 ml 06/07/18 13:00 Sodium Chloride Flush Syringe 10 Ml IV 06/08/18 12:59 PRN NR
[2018-06-07] MEDS: ANCEF/NS 1 GM/50 ML 1 GM/50 ML BAG IV SCH (18:35)
[2018-06-07] MEDS: SODIUM CHLORIDE FLUSH SYRINGE 10 ML IV SCH (18:42)
[2018-06-08] MEDS: PERCOCET 5/325 PO PRN ×3 (04:57→21:36)
[2018-06-08] MEDS: LACTATED RINGERS 1,000 ML IV SCH (05:00)
[2018-06-08] MEDS: LOVENOX SUB-Q SCH ×3 (05:18→11:03)
[2018-06-08] MEDS: MORPHINE IV PRN ×2 (05:20→17:15)
[2018-06-08] MEDS: ANCEF/NS 1 GM/50 ML 1 GM/50 ML BAG IV SCH (05:46)
[2018-06-08] MEDS: SODIUM CHLORIDE FLUSH SYRINGE 10 ML IV SCH ×3 (05:47→21:39)
[2018-06-08 05:59] LABS: Hematocrit 36.5 % (35.5-45.6); Hemoglobin 12.2 gm/dl (11.8-15.2); Mean Corpuscular HGB Conc 33 % (32-34); Mean Corpuscular Hemoglobin 29 pg (28-32); Mean Corpuscular Volume 87 fl (84-94); Platelet Count 193 K/mm3 (140-440); Red Blood Count 4.21 M/mm3 (3.65-5.03); Red Cell Distribution Width 13.4 % (13.2-15.2)
[2018-06-08] MEDS: DILAUDID IV PRN (09:56)
--- NOTE | 2018-06-08 10:55 | Progress Note ---
Assessment and Plan clinically stable tolerated surgery well ambulating with pt now no sxs - "feels great" stable cv status f/u us in office - Patient Problems (1) EtOH dependence Current Visit: Yes Status: Acute (2) Fracture of femoral neck, left Current Visit: Yes Status: Acute Qualifiers: Encounter type: initial encounter Fracture type: closed Qualified Code(s): S72.002A - Fracture of unspecified part of neck of left femur, initial encounter for closed fracture (3) Hypertension Current Visit: Yes Status: Acute Qualifiers: Hypertension type: essential hypertension Qualified Code(s): I10 - Essential (primary) hypertension (4) CAD (coronary artery disease) Current Visit: Yes Status: Chronic (5) S/P CABG (coronary artery bypass graft) Current Visit: Yes Status: Chronic (6) Tobacco use Current Visit: Yes Status: Chronic (7) Hyperlipidemia Current Visit: No Status: Chronic Subjective Date of service: 06/08/18 Principal diagnosis: hip fx Interval history: no complaints Objective Vital Signs Temp Pulse Resp BP Pulse Ox 06/08/18 04:50 98.2 F 74 24 150/78 99 06/07/18 22:24 98.1 F 71 20 158/72 97 06/07/18 18:54 97.8 F 86 18 160/85 96 06/07/18 14:11 16 126/74 06/07/18 13:45 98.8 F 70 14 138/68 96 06/07/18 13:40 12 06/07/18 13:30 74 14 143/76 97 06/07/18 13:20 69 11 L 149/75 98 06/07/18 13:15 76 13 170/82 98 06/07/18 13:14 12 06/07/18 13:00 74 14 170/83 98 06/07/18 12:55 73 13 182/90 98 06/07/18 12:50 71 12 180/85 100 06/07/18 12:45 72 12 180/82 100 06/07/18 12:40 97.5 F L 78 14 189/93 99 - Physical Examination General: No Apparent Distress HEENT: Positive: PERRL, Normocephaly, Mucus Membranes Moist Neck: Positive: neck supple, trachea midline Neuro: Positive: Grossly Intact Abdomen: Positive: Soft. Negative: Tender Skin: Negative: Rash, Wound Musculoskeletal: No Pain Extremities: Absent: edema - Labs and Meds CBC 06/08/18 Range/Units 04:53 WBC 11.5 H (4.5-11.0) K/mm3 RBC 4.21 (3.65-5.03) M/mm3 Hgb 12.2 (11.8-15.2) gm/dl Hct 36.5 (35.5-45.6) % Plt Count 193 (140-440) K/mm3 - Imaging and Cardiology EKG: report reviewed, image reviewed Echo: pending, report reviewed (05/2015 showed EF 45-54%, mild MR.)
[2018-06-08] MEDS: ZESTRIL PO SCH (11:03)
[2018-06-08] MEDS: LOPRESSOR PO SCH ×2 (11:04→21:36)
[2018-06-08] MEDS: BABY ASPIRIN PO SCH (11:04)
--- NOTE | 2018-06-08 17:27 | Progress Note ---
Assessment and Plan Assessment and plan: Patient's a 57-year-old man with a history of CAD status post CABG 3 vessels present into the hospital following a fall mechanism of fall is unknown patient describes it as a "freak accident" although he endorses history of alcohol use he reports that he drinks very infrequent maybe 12 pack every other week. Left hip x-ray: IMPRESSION: Acute impacted left femoral neck fracture Assessment Fracture of the left femoral neck CAD status post CABG Hypertension EtOH use disorder Nicotine dependence Plan Continue pain control and supportive care s/p left total hip replacement started on on atorvastatin, metoprolol, SWEETIE inhibitor. Can be discharged on these. PT OT evaluation and treatment Cardiology input noted patient was considered a moderate risk for cardiovascular risk assessment for planned for surgery. Since there are no immediate cardiac contraindication Extensive counseling provided to the patient will need to quit tobacco use DVT and GI prophylaxis Plan discussed with the patient and family Disposition per orthopedic surgeon and physical therapy. home tomorrow once home care setup, no insurance/payor source for placement History Interval history: Patient was seen and examined. Follow-up on current diagnosis left hip fracture, he is walking with PT. Overnight uneventful. Patient denies any chest pain, shortness breath, nausea/vomiting or severe headaches. Imaging, nursing note, chart, labs and old chart reviewed. Discussed with patient. Hospitalist Physical - Physical exam Narrative exam: Gen: WDWN, NAD, Awake, Alert, Orientated HEENT: NCAT, EOMI, PERRL, OP Clear Neck: supple, no adenopathy, no thyromegaly, no JVD CVS/Heart: RRR, normal S1S2, pulses present bilaterally Chest/Lungs: CTA B, Symmetrical chest expansion, good air entry bilaterally GI/Abdomen: soft, NTND, good bowel sounds, no guarding or rebound /Bladder: no suprapubic tenderness, no CVA or paraspinal tenderness Extermity/Skin: no c/c/e, no obvious rash MSK: FROM x 3, left hip repair Neuro: CN 2-12 grossly intact, no new focal deficits Psych: calm - Constitutional Vitals: Temp Pulse Resp BP Pulse Ox 98.4 F 86 20 130/74 96 06/08/18 13:31 06/08/18 13:31 06/08/18 17:15 06/08/18 13:31 06/08/18 13:31 General appearance: Present: no acute distress Results - Labs CBC & Chem 7: 06/08/18 04:53 06/04/18 17:25 Labs: Laboratory Last Values WBC 11.5 K/mm3 (4.5-11.0) H 06/08/18 04:53 RBC 4.21 M/mm3 (3.65-5.03) 06/08/18 04:53 Hgb 12.2 gm/dl (11.8-15.2) 06/08/18 04:53 Hct 36.5 % (35.5-45.6) 06/08/18 04:53 MCV 87 fl (84-94) 06/08/18 04:53 MCH 29 pg (28-32) 06/08/18 04:53 MCHC 33 % (32-34) 06/08/18 04:53 RDW 13.4 % (13.2-15.2) 06/08/18 04:53 Plt Count 193 K/mm3 (140-440) 06/08/18 04:53 Sodium 138 mmol/L (137-145) 06/04/18 17:25 Potassium 3.9 mmol/L (3.6-5.0) 06/04/18 17:25 Chloride 100.5 mmol/L (98-107) 06/04/18 17:25 Carbon Dioxide 26 mmol/L (22-30) 06/04/18 17:25 Anion Gap 15 mmol/L 06/04/18 17:25 BUN 17 mg/dL (9-20) 06/04/18 17:25 Creatinine 0.9 mg/dL (0.8-1.5) 06/04/18 17:25 Estimated GFR > 60 ml/min 06/04/18 17:25 BUN/Creatinine Ratio 19 % 06/04/18 17:25 Glucose 104 mg/dL (75-100) H 06/04/18 17:25 Calcium 8.8 mg/dL (8.4-10.2) 06/04/18 17:25 Total Bilirubin 0.60 mg/dL (0.1-1.2) 06/04/18 17:25 AST 21 units/L (5-40) 06/04/18 17:25 ALT 15 units/L (7-56) 06/04/18 17:25 Alkaline Phosphatase 89 units/L (35-129) 06/04/18 17:25 Total Protein 6.9 g/dL (6.3-8.2) 06/04/18 17:25 Albumin 3.7 g/dL (3.9-5) L 06/04/18 17:25 Albumin/Globulin Ratio 1.2 % 06/04/18 17:25 Triglycerides 103 mg/dL (2-149) 06/06/18 04:09 Cholesterol 141 mg/dL (50-199) 06/06/18 04:09 LDL Cholesterol Direct 103 mg/dL (50-130) 06/06/18 04:09 HDL Cholesterol 31 mg/dL (40-59) L 06/06/18 04:09 Cholesterol/HDL Ratio 4.54 % 06/06/18 04:09 Plasma/Serum Alcohol < 0.01 % (0-0.07) 06/04/18 17:25 Active Medications - Current Medications Current Medications: Generic Name Dose Route Start Last Admin Trade Name Freq PRN Reason Stop Dose Admin Acetaminophen 650 mg 06/04/18 19:03 Tylenol PO Q4H PRN Pain MILD(1-3)/Fever >100.5/AGUSTIN Albuterol 2.5 mg 06/04/18 19:03 Proventil IH Q4HRT PRN Shortness Of Breath Aspirin 81 mg 06/06/18 10:00 06/08/18 11:04 Baby Aspirin PO 81 mg QDAY MARTIR Administration Atorvastatin Calcium 20 mg 06/05/18 22:00 06/07/18 22:44 Lipitor PO 20 mg QHS MARTIR Administration Enoxaparin Sodium 40 mg 06/08/18 10:00 06/08/18 11:03 Lovenox SUB-Q 40 mg QDAY MARTIR Administration Sodium Chloride 1,000 mls @ 100 mls/hr 06/04/18 23:00 06/08/18 05:45 Nacl 0.45% 1000 Ml IV Infused DIRECT MARTIR Infusion Lactated Ringer's 1,000 mls @ 75 mls/hr 06/07/18 09:00 06/08/18 05:00 Lactated Ringers IV 75 mls/hr DIRECT MARTIR Administration Lisinopril 20 mg 06/07/18 10:00 06/08/18 11:03 Zestril PO 20 mg QDAY MARTIR Administration Metoprolol Tartrate 25 mg 06/05/18 22:00 06/08/18 11:04 Lopressor PO 25 mg BID MARTIR Administration Morphine Sulfate 4 mg 06/07/18 12:31 06/08/18 17:15 Morphine IV 4 mg Q4H PRN Administration Pain , Severe (7-10) Ondansetron HCl 4 mg 06/04/18 19:03 Zofran IV Q8H PRN Nausea And Vomiting Oxycodone/Acetaminophen 1 tab 06/07/18 12:31 06/07/18 13:40 Percocet 5/325 PO 1 tab Q6H PRN Administration Pain, Moderate (4-6) Senna/Docusate Sodium 2 tab 06/05/18 16:55 Senokot S PO Q12H PRN Laxative Effect Sodium Chloride 10 ml 06/04/18 22:00 06/08/18 11:04 Sodium Chloride Flush Syringe 10 Ml IV 10 ml BID MARTIR Administration Sodium Chloride 10 ml 06/04/18 19:03 Sodium Chloride Flush Syringe 10 Ml IV PRN PRN LINE FLUSH
--- NOTE | 2018-06-09 00:28 | XRay Report ---
PROCEDURE: XR PELVIS 1-2V TECHNIQUE: PROCEDURE: XR PELVIS 1-2V TECHNIQUE: Pelvis radiograph, one view. HISTORY: postop Evaluation COMPARISONS: None FINDINGS: There has been left hip arthroplasty. The hardware is properly positioned. There is mild narrowing of the right hip joint spaces. IMPRESSION: Left hip arthroplasty with the hardware properly positioned. HISTORY: postop Evaluation COMPARISONS: FINDINGS: IMPRESSION: . This document is electronically signed by Cammie Quevedo DO., June 09 2018 12:26:29 AM ET
[2018-06-09] MEDS: PERCOCET 5/325 PO PRN ×2 (04:30→10:44)
[2018-06-09] MEDS: MORPHINE IV PRN ×2 (08:04→13:50)
[2018-06-09] MEDS: SODIUM CHLORIDE FLUSH SYRINGE 10 ML IV SCH (10:39)
[2018-06-09] MEDS: LOPRESSOR PO SCH (10:39)
[2018-06-09] MEDS: LOVENOX SUB-Q SCH (10:39)
[2018-06-09] MEDS: BABY ASPIRIN PO SCH (10:39)
[2018-06-09] MEDS: ZESTRIL PO SCH (10:40)
[2018-06-09 11:55] VITALS: BP 146/68
--- NOTE | 2018-06-09 12:48 | Discharge Summary ---
Providers - Providers Date of Admission: 06/04/18 19:03 Date of discharge: 06/09/18 Attending physician: NELDA GUY 06/05/18 09:49 Consult to Physician [CONS] Routine Comment: Consulting Provider: SHIRLEY ARMIJO Physician Instructions: Reason For Exam: hip fracture 06/05/18 10:39 Consult to Physician [CONS] Routine Comment: Consulting Provider: ADELA TOM Physician Instructions: Reason For Exam: preop clearance 06/07/18 08:18 Physical Therapy Evaluation and Treat [CONS] Routine Comment: Reason For Exam: hip fracture, post op management 06/07/18 12:34 Physical Therapy Evaluation and Treat [CONS] Routine Comment: Reason For Exam: post op evaluation Weight bearing status?: Full wt bearing Assistive devices?: Yes If so list: Walker Primary care physician: DAVID CHA Hospitalization Condition: Stable Hospital course: Patient is a 57-year-old man with a history of CAD status post CABG, hypertension, tobacco dependency and alcohol use who presented to [facility] ED after a mechanical fall resulting in left femoral neck fracture. He underwent Left THR on 06/07/[address] Armijo. * Left hip x-ray: IMPRESSION: Acute impacted left femoral neck fracture Discharge Dx Fracture of the left femoral neck s/p Left THR, d/w Dr. Armijo, use Eliquis 2.5 mg bid x 3 weeks for dvt prophylaxis (with coupon). I d/w patient. I informed him that if can not get Eliquis then use Aspirin twice a day. CAD status post CABG by history Hypertension: low salt diet EtOH use disorder: counseling done Nicotine dependence: counseling to stop done Disposition: DC/[place]-06 HOME [facility] Time spent for discharge: 36 minutes Core Measure Documentation - Palliative Care Palliative Care/ Comfort Measures: Not Applicable - Core Measures Any of the following diagnoses?: none - VTE Discharge Requirements Deep Vein Thrombosis/Pulmonary Embolism Present on Admission: No Has pt received <5 days of overlap therapy or INR<2.0: No Anticoagulant overlap therapy prescribed at discharge: No Contraindication No Overlap Therapy order at DC: Not Indicated Exam - Physical Exam Narrative exam: Gen: WDWN, NAD, Awake, Alert, Orientated HEENT: NCAT, EOMI, PERRL, OP Clear Neck: supple, no adenopathy, no thyromegaly, no JVD CVS/Heart: RRR, normal S1S2, pulses present bilaterally Chest/Lungs: CTA B, Symmetrical chest expansion, good air entry bilaterally GI/Abdomen: soft, NTND, good bowel sounds, no guarding or rebound /Bladder: no suprapubic tenderness, no CVA or paraspinal tenderness Extermity/Skin: no c/c/e, no obvious rash MSK: FROM x 3, left hip repair Neuro: CN 2-12 grossly intact, no new focal deficits Psych: calm - Constitutional Vitals: Temp Pulse Resp BP Pulse Ox 98.5 F 80 20 146/68 95 06/09/18 11:10 06/09/18 11:10 06/09/18 11:10 06/09/18 11:10 06/09/18 11:10 Plan Activity: up only with assistance, fall precautions, other (no strenous activity until cleared by Ortho) Diet: low salt Wound: per your surgeon's advice Special Instructions: smoking cessation, physical therapy Additional Instructions: IF YOU CAN NOT GET THE ELIQUIS THEN USE ASPIRIN 81 MG PO BID X 3 WEEKS TO PREVENT BLOOD CLOTS Follow up with: DAVID CHA MD [Primary Care Provider] - 3-5 Days SHIRLEY ARMIJO MD [Staff Physician] - 7 Days Forms: Accompanied Note Prescriptions: AtorvaSTATin [Lipitor] 20 mg PO QHS #30 tablet Apixaban [Eliquis] 2.5 mg PO BID #21 tablet Metoprolol [Lopressor TAB] 25 mg PO BID #60 tablet oxyCODONE /ACETAMINOPHEN [Percocet 5/325 mg] 1 tab PO Q6H PRN #15 tablet PRN Reason: Pain, Moderate (4-6) Sennosides/Docusate [Senokot S] 2 tab PO Q12H PRN #15 tablet PRN Reason: Constipation Lisinopril [Zestril TAB] 20 mg PO QDAY #30 tablet
== END 2018-06-09 15:00 | disposition home health service (06) | DRG 470 ==
LOC: ED 15:57 → 3A 19:03
PROVIDERS: ADMIT Internal Medicine; ATTEND Internal Medicine
PROC: 0SRB02Z Replacement of Left Hip Joint with Metal on Polyethylene Synthetic Substitute, Open Approach (ICD-10-PCS; principal; 2018-06-07)
DX: S72.002A Fracture of unspecified part of neck of left femur, initial encounter for closed fracture (principal); F17.213 Nicotine dependence, cigarettes, with withdrawal; I10 Essential (primary) hypertension; W18.39XA Other fall on same level, initial encounter; Y93.89 Activity, other specified; Y92.89 Other specified places as the place of occurrence of the external cause; Y99.8 Other external cause status; I25.2 Old myocardial infarction; I25.10 Atherosclerotic heart disease of native coronary artery without angina pectoris; Z95.1 Presence of aortocoronary bypass graft; F10.20 Alcohol dependence, uncomplicated; Y90.9 Presence of alcohol in blood, level not specified; E78.5 Hyperlipidemia, unspecified; Z71.6 Tobacco abuse counseling; Z71.41 Alcohol abuse counseling and surveillance of alcoholic
CPT/HCPCS: 36415; 72170; 80053; 80061; 80320; 85014; 85018; 85027; 88304; 88311; 93005; 93010; 93306; 96374; 96375; 99285; 99406; G0378; A4217; A9270-GY; C1776; G0480; J0690; J1100; J1170; J1650; J1885; J2250; J2270; J2370; J2405; J2704; J3010; J7030; J7120

== ENCOUNTER 2021-03-01 05:35 | Emergency (ER) | payer SELFPAY ==
[2021-03-01] MEDS ORDERED: IPRATROPIUM/ALBUTEROL SULFATE 3 ML AMPUL.NEB IH ONE (06:22)
--- NOTE | 2021-03-01 06:25 | Emergency Department Report ---
ED General Adult HPI - General Chief complaint: Dyspnea/Respdistress Stated complaint: SOB Time Seen by Provider: 03/01/21 06:12 Source: patient Mode of arrival: Ambulatory Limitations: No Limitations - History of Present Illness Initial comments: Patient presents with shortness of breath since Monday. He actually is stating that he has a cough and the cough seems to be worse at night. When he coughs, he sometimes becomes short of breath and has a hard time catching his breath. Cough is producing a whitish phlegm. He denies fevers and chills. There is no muscle ache or body ache. He has had a sick contact. His grandson has a cold for the last 3 days. Patient was concerned because he was having a hard time breathing. He has no pain or swelling in the feet or ankles. There is no history of recent travel or trauma. Patient states that he has not had hemoptysis. He came in for evaluation and treatment primarily for the shortness of breath. He is not taking any medication for the shortness of breath. He is used Robitussin for the cough which has not helped. He has no sick contacts regarding influenza or coronavirus. - Related Data Previous Rx's Medication Instructions Recorded Last Taken Type Acetaminophen [Acetaminophen TAB] 650 mg PO Q4H PRN #15 tablet 06/09/18 Unknown Rx Apixaban [Eliquis] 2.5 mg PO BID #21 tablet 06/09/18 Unknown Rx AtorvaSTATin [Lipitor] 20 mg PO QHS #30 tablet 06/09/18 Unknown Rx Metoprolol [Lopressor TAB] 25 mg PO BID #60 tablet 06/09/18 Unknown Rx Sennosides/Docusate [Senokot S] 2 tab PO Q12H PRN #15 tablet 06/09/18 Unknown Rx lisinopriL [Zestril TAB] 20 mg PO QDAY #30 tablet 06/09/18 Unknown Rx oxyCODONE /ACETAMINOPHEN [Percocet 1 tab PO Q6H PRN #15 tablet 06/09/18 Unknown Rx 5/325 mg] Albuterol Sulfate [Proair 2 puff IH 4XD #1 aer.pw.bas 03/01/21 Unknown Rx Digihaler] Benzonatate [Tessalon Perles] 100 mg PO Q8HR #21 capsule 03/01/21 Unknown Rx Allergies Allergy/AdvReac Type Severity Reaction Status Date / Time No Known Allergies Allergy Verified 03/01/21 05:46 ED Review of Systems ROS: Stated complaint: SOB Other details as noted in HPI Comment: All other systems reviewed and negative Constitutional: denies: fever Eyes: denies: eye pain ENT: denies: throat pain Respiratory: see HPI Cardiovascular: denies: chest pain Endocrine: denies: unexplained weight loss Gastrointestinal: denies: abdominal pain Genitourinary: denies: dysuria Musculoskeletal: denies: back pain Skin: denies: rash Neurological: denies: headache Hematological/Lymphatic: denies: easy bruising ED Past Medical Hx - Past Medical History Hx Hypertension: No 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) Hx Congestive Heart Failure: No Hx Diabetes: No Hx Liver Disease: No Hx Renal Disease: No Hx Asthma: No Hx COPD: No Hx Tuberculosis: No Hx HIV: No - Surgical History Hx Pacemaker: No Additional Surgical History: TRIPLWE BYPASS - Social History Smoking Status: Current Every Day Smoker - Medications Home Medications: Home Medications Medication Instructions Recorded Confirmed Last Taken Type Acetaminophen [Acetaminophen TAB] 650 mg PO Q4H PRN #15 tablet 06/09/18 Unknown Rx Apixaban [Eliquis] 2.5 mg PO BID #21 tablet 06/09/18 Unknown Rx AtorvaSTATin [Lipitor] 20 mg PO QHS #30 tablet 06/09/18 Unknown Rx Metoprolol [Lopressor TAB] 25 mg PO BID #60 tablet 06/09/18 Unknown Rx Sennosides/Docusate [Senokot S] 2 tab PO Q12H PRN #15 tablet 06/09/18 Unknown Rx lisinopriL [Zestril TAB] 20 mg PO QDAY #30 tablet 06/09/18 Unknown Rx oxyCODONE /ACETAMINOPHEN [Percocet 1 tab PO Q6H PRN #15 tablet 06/09/18 Unknown Rx 5/325 mg] Albuterol Sulfate [Proair 2 puff IH 4XD #1 aer.pw.bas 03/01/21 Unknown Rx Digihaler] Benzonatate [Tessalon Perles] 100 mg PO Q8HR #21 capsule 03/01/21 Unknown Rx ED Physical Exam - General Limitations: No Limitations, Other (Pulse ox noted and hypoxic. This improved with treatment.) General appearance: alert, in distress (Mild) - Head Head exam: Present: atraumatic, normocephalic - Eye Eye exam: Present: normal appearance, EOMI. Absent: scleral icterus - ENT ENT exam: Present: mucous membranes dry, normal external ear exam - Neck Neck exam: Present: normal inspection. Absent: meningismus - Respiratory Respiratory exam: Present: normal lung sounds bilaterally, respiratory distress (Mild with tachypnea) - Cardiovascular Cardiovascular Exam: Present: normal rhythm, tachycardia - GI/Abdominal GI/Abdominal exam: Present: soft. Absent: tenderness - Extremities Exam Extremities exam: Present: normal capillary refill. Absent: calf tenderness - Back Exam Back exam: Absent: CVA tenderness (R), CVA tenderness (L) - Neurological Exam Neurological exam: Present: alert, oriented X3, CN II-XII intact - Psychiatric Psychiatric exam: Present: normal affect, normal mood - Skin Skin exam: Present: warm, dry ED Course Vital Signs 03/01/21 03/01/21 05:42 06:45 Temperature 98.5 F 98.3 F Pulse Rate 117 H 102 H Respiratory 23 20 Rate Blood Pressure 191/111 146/104 [Right] O2 Sat by Pulse 92 100 Oximetry - Reevaluation(s) Reevaluation #1: 03/01/21 06:23 Chest x-ray and EKG were ordered. Old records reviewed. Reevaluation #2: 03/01/21 08:16 X-ray was noted. Patient was discharged. Old records have been reviewed. ED Medical Decision Making - Radiology Data Radiology results: report reviewed - Medical Decision Making Patient presented with cough and difficulty breathing. He has no evidence of pneumonia radiographically. He has a small left pleural effusion. He does not have dependent edema. There is no history of heart failure. Has no crackles on exam. I do not necessarily believe this represents new onset CHF. He has had respiratory type symptoms. Patient was treated symptomatically. We did have him follow-up with your regular physician and a fisher net for further testing and evaluation. He certainly does not have radiographic evidence suggestive of Covid. He does not report fevers or influenza exposure. However this could easily be influenza, coronavirus, or some other viral infection. Critical Care Time: No Critical care attestation.: If time is entered above; I have spent that time in minutes in the direct care of this critically ill patient, excluding procedure time. ED Disposition Clinical Impression: Shortness of breath, Acute URI, Pleural effusion, left Disposition: 01 HOME / SELF CARE / HOMELESS Is pt being admited?: No Condition: Stable Instructions: Shortness of Breath, Adult, [id number], Viral Respiratory Infection, [id number], Pleural Effusion Additional Instructions: Avoid salt. Drink plenty water. Use Tylenol and ibuprofen for fevers. Continue home medication. Follow-up with your regular doctor for further testing. If you do not have a regular doctor, follow-up with the referral physicians. Prescriptions: Albuterol Sulfate [Proair Digihaler] 2 puff IH 4XD #1 aer.pw.bas Benzonatate [Tessalon Perles] 100 mg PO Q8HR #21 capsule Referrals: PRIMARY CAREMD [Referring] - 3-5 Days EUGENIE PISANO MD [Staff Physician] - 3-5 Days ADELA TOM MD [Staff Physician] - 3-5 Days
--- NOTE | 2021-03-01 07:08 | XRay Report ---
CHEST 2 VIEWS INDICATION / CLINICAL INFORMATION: cough. COMPARISON: None available. FINDINGS: SUPPORT DEVICES: None. HEART / MEDIASTINUM: Normal size of the cardiac silhouette with sternotomy changes. LUNGS / PLEURA: Small left pleural effusion with mild left basilar atelectasis. Scattered nodules are seen along the upper/mid right lung measuring up to 6 mm and possibly representing calcified granulo mas. The lungs are otherwise clear. No pneumothorax. ADDITIONAL FINDINGS: No significant additional findings. IMPRESSION: 1. Small left pleural effusion with associated atelectasis. 2. Additional findings as above. Signer Name: Héctor La MD Signed: 03/01/2021 7:04 AM Workstation Name: [id number]
[2021-03-01 09:47] VITALS: BP 154/108
== END 2021-03-02 05:15 | disposition home or self-care (01) ==
LOC: ED 05:35
DX: J91.8 Pleural effusion in other conditions classified elsewhere (principal); J06.9 Acute upper respiratory infection, unspecified; F17.200 Nicotine dependence, unspecified, uncomplicated; I25.2 Old myocardial infarction
CPT/HCPCS: 71046; 99283